=== PATIENT | female | born 1990 | race Hispanic/Latino ===

== ENCOUNTER 2021-03-31 16:13 | Emergency (ER) | payer MEDICAID ==
[2021-03-31] MEDS ORDERED: diphenhydrAMINE 25 MG CAP PO ONE (17:33)
--- NOTE | 2021-03-31 17:33 | Emergency Department Report ---
ED General Adult HPI - General Stated complaint: SOB Time Seen by Provider: 03/31/21 17:22 Source: patient Mode of arrival: Stretcher Limitations: No Limitations - History of Present Illness Initial comments: Patient presents secondary to palpitations. She is been having palpitation for the last week. She never had this with the first . She been seen at a different hospital. They told her that everything was normal based on EKG and blood work. I told her to follow with cardiology. She is not seeing cardiology. She states it feels like her heart is racing. She has no chest pain associate with this. She states that her heart is just pounding. It should be noted her pulse is not elevated. She is aware that it is not elevated. She just has the perception that her heart is racing. - Related Data Allergies Allergy/AdvReac Type Severity Reaction Status Date / Time No Known Allergies Allergy Verified 03/31/21 16:27 ED Review of Systems ROS: Stated complaint: SOB Other details as noted in HPI Comment: All other systems reviewed and negative Constitutional: denies: fever Eyes: denies: eye pain ENT: denies: throat pain Respiratory: denies: cough Cardiovascular: as per HPI Endocrine: denies: unexplained weight loss Gastrointestinal: denies: abdominal pain Genitourinary: denies: dysuria Musculoskeletal: denies: back pain Skin: denies: rash Neurological: denies: headache Hematological/Lymphatic: denies: easy bruising ED Past Medical Hx - Past Medical History Previous Medical History?: Yes Additional medical history: dvt - Surgical History Past Surgical History?: No - Family History Family history: no significant ED Physical Exam - General Limitations: No Limitations, Other (Pulse ox noted and normal) General appearance: alert, in no apparent distress - Head Head exam: Present: atraumatic, normocephalic, normal inspection - Eye Eye exam: Present: normal appearance, EOMI - ENT ENT exam: Present: normal exam, normal orophraynx - Neck Neck exam: Present: normal inspection. Absent: meningismus - Respiratory Respiratory exam: Present: normal lung sounds bilaterally. Absent: respiratory distress - Cardiovascular Cardiovascular Exam: Present: regular rate, normal rhythm - GI/Abdominal GI/Abdominal exam: Present: soft. Absent: tenderness - Extremities Exam Extremities exam: Present: normal capillary refill. Absent: calf tenderness - Back Exam Back exam: Absent: CVA tenderness (R), CVA tenderness (L) - Neurological Exam Neurological exam: Present: alert, oriented X3, CN II-XII intact, normal gait - Psychiatric Psychiatric exam: Present: normal affect, normal mood - Skin Skin exam: Present: warm, dry ED Course Vital Signs 03/31/21 16:28 Temperature 98.8 F Pulse Rate 90 Respiratory 20 Rate Blood Pressure 138/87 [Left] O2 Sat by Pulse 95 Oximetry - Reevaluation(s) Reevaluation #1: 03/31/21 17:33 Labs were ordered. Old records reviewed. Reevaluation #2: 03/31/21 18:59 TSH was noted and the patient was discharged ED Medical Decision Making - EKG Data -: EKG Interpreted by Me - EKG Data 03/31/21 18:59 EKG shows normal sinus rhythm with normal intervals. Patient has no ST elevation to suggest any further/depression suggestive of ischemia. There is no evidence of dysrhythmia. Intervals are normal including QRS and QT corrected. - Medical Decision Making Patient presents with palpitations. Etiology for this is not known. She actually questions whether this could all be related to anxiety. We do not have a test for anxiety and we have told her that. She does not have evidence of thyrotoxicosis. She does not have evidence of thyroid storm. Patient does not have dysrhythmia based on EKG here. She had already been seen at a different hospital where blood work and other work-up was negative. She is not tachycardi c. She is not short of breath. She is not hypoxic. She had a peridelivery DVT previously. I do not believe that that increases her risk for PE at this point. Critical Care Time: No Critical care attestation.: If time is entered above; I have spent that time in minutes in the direct care of this critically ill patient, excluding procedure time. ED Disposition Clinical Impression: Palpitations Disposition: 01 HOME / SELF CARE / HOMELESS Is pt being admited?: No Condition: Stable Additional Instructions: Push fluids. Return for problems. Continue to avoid caffeine. Follow-up with your regular doctor for recheck. Referrals: PRIMARY CARE, [Referring] - 3-5 Days
[2021-03-31 20:15] VITALS: BP 123/78
== END 2021-03-31 20:12 | disposition home or self-care (01) ==
LOC: ED 16:13
DX: R00.2 Palpitations (principal)
CPT/HCPCS: 36415; 84443; 99283